=== PATIENT | female | born 1965 | race American Indian/Alaskan Native ===

== ENCOUNTER 2017-10-07 08:24 | Outpatient (CLI) | payer OTHER ==
--- NOTE | 2017-10-07 08:47 | XRay Report ---
Right shoulder 3 views: X. History: Shoulder pain. Findings: [id number] arthritic changes a.c. joint. Normal glenohumeral joint. Normal acromiohumeral space however there is calcification noted of the posterior greater tuberosity soft tissue. Impression: Arthritic changes a.c. joint. Calcification adjacent greater tuberosity may be related to calcific tendinitis.
== END 2017-10-07 08:25 | disposition home or self-care (01) ==
LOC: SPVIMAG 08:24
PROVIDERS: ATTEND Orthopaedic Surgery Sports Medicine
DX: M19.011 Primary osteoarthritis, right shoulder (principal); M25.811 Other specified joint disorders, right shoulder